=== PATIENT | male | born 1975 | race Caucasian/White ===

== ENCOUNTER 2016-10-04 18:34 | Observation (INO) | payer BC ==
--- NOTE | ~2016-10-04 | HP ---
History And Physical [place] [id number] [place]. [address] NAME: GARRY ROJAS : 75 STATUS : ADM Kalen PAT#: [id number] AGE: 40 ADM/REG DATE : 10/04/16 MR#: [id number] REPORT SERV DATE: 10/05/16 DICTATED BY: JODIE MADERA DATE: 10/05/16 REPORT STATUS : Draft TRANSCRIBED BY: MODL DATE: 10/05/16 DATE OF ADMISSION: 10/04/2016 CHIEF COMPLAINT: Chest pressure. HISTORY OF PRESENT ILLNESS: A pleasant, 40-year-old, white gentleman with no known history of CAD, who recently underwent lumbar fusion six weeks ago with Dr. Ward. He states that yesterday, 10/04/2016, after pentecostalism he felt midsternal chest pressure and shortness of breath. He experienced these symptoms again while walking outside to the [facility]. He describes the chest discomfort as a pressure, it did not radiate elsewhere. He reports associated shortness of breath and belching. Denies nausea, diaphoresis, or dizziness. At its most intense, he rated the chest discomfort as a 6/10. At time of interview in the [facility], he is pain free. The episode lasted approximately an hour in duration. He did try Tums with no improvement in his symptoms. The patient denies any personal history of myocardial infarction, stroke, DVT, or pulmonary embolus. The patient denies any recent fever or chills, no palpitations, no syncopal episodes. Denies PND or orthopnea. PAST MEDICAL HISTORY: 1. GERD. 2. Denies hypertension, dyslipidemia or diabetes. 3. Status post lumbar fusion 08/[address] Ward secondary to spondylolisthesis with instability. 4. Anxiety. 5. Positive family history for early CAD. 6. Former tobacco abuse. PAST SURGICAL HISTORY: 1. Ablation by Dr. Quiles at [facility] in 2006 for unknown rhythm. 2. Lumbar fusion. 3. Right shoulder surgery. 4. Cholecystectomy. 5. Umbilical hernia with subsequent incisional hernia repair. SOCIAL HISTORY: He is with two children. Previously, employed by [employer]. Currently, recovering from back surgery, recently more mobile on using a cane, with physical therapy to begin next week. Quit smoking greater than five years ago. Denies alcohol or illicits. FAMILY HISTORY: Father with heart attack at 52, in his 60s with a history of COPD. Mother with bypass at 72, remains alive at 75. REVIEW OF SYSTEMS: A 14-point review of systems performed, significant for HPI. No other contributory diagnoses identified. History And Physical [place] [address] [place]. [address] NAME: GARRY ROJAS : 75 STATUS : ADM Kalen PAT#: [id number] AGE: 40 ADM/REG DATE : 10/04/16 MR#: [id number] REPORT SERV DATE: 10/05/16 DICTATED BY: JODIE MADERA DATE: 10/05/16 REPORT STATUS : Draft TRANSCRIBED BY: JUVENAL DATE: 10/05/16 ALLERGIES: HE HAS ALLERGY TO PENICILLIN, HIVES; HISTAMINES, HEART RACING; TYLENOL, HIVES, NAUSEA, AND LETHARGY; PREDNISONE, HEART RACES, FLUSHING; ANCEF, HIVES; DILAUDID, AGITATION, ANGER. HOME MEDICINES: Tums p.r.n., Advil p.r.n., Protonix 40 mg daily. PHYSICAL EXAMINATION: VITAL SIGNS: Blood pressure 117/73, pulse 65, respirations 17, temperature 98.1, O2 saturation 98% on room air. Height 5 feet 11 inches, weight 197 pounds. BMI 27. GENERAL: Cooperative, in no apparent distress. HEENT: Pupils 2 mm, sclera nonicteric. Nares patent. Moist mucous membranes. No xanthelasma. NECK: Trachea midline, no thyromegaly. No JVD. No bruits. LYMPH: No cervical lymphadenopathy. No supraclavicular lymphadenopathy. RESPIRATORY: Unlabored respirations. Breath sounds clear bilaterally to posterior auscultation. No wheezes or rhonchi. CARDIOVASCULAR: Regular rate. No murmur, rub or gallop appreciated. Extremities without edema. Pulses 2+ bilaterally. ABDOMEN: Soft, nontender, nondistended, normal bowel sounds auscultated throughout. No organomegaly. SKIN: Warm, dry extremities. No pallor, or cyanosis. PSYCHIATRIC: Appropriate affect. Alert, oriented x3. LABORATORY DATA: Troponin less than 0.02 x3, potassium 3.5, BUN 16, creatinine 1.44, glucose 96, magnesium 2.0, BNP less than 2. WBC 12.7, hemoglobin 15.4, hematocrit 44.4, platelet count 197,000. D-dimer 0.57. EKG, sinus rhythm. MPI 05/2015: Jeancarlos stage IV, 10 minutes, 13 METs, mild chest pain, no ischemia. CTA of chest: No PE. Normal CTA of chest. ASSESSMENT AND PLAN: 1. Substernal chest pain. The patient has been observed in the [facility] overnight to rule out myocardial infarction with serial enzymes and serial EKGs and held n.p.o. We will proceed with vasodilator stress test today given recent back surgery and activity limitations. The patient will be discharged home if low risk, no ischemia. If anything suggestive of ischemia, Cardiology referral will be initiated. Otherwise, the patient will be asked to follow up with PCP in one to two weeks with all studies being sent to that office. 2. Gastroesophageal reflux disease. Continue PPI. 3. Recent back surgery. Activity and physical therapy encouraged as ordered and allowed to followup with Dr. Ward. KIKE/JUVENAL Jodie History And Physical [address] [address] NAME: GARRY ROJAS : 75 STATUS : ADM Kalen PAT#: [id number] AGE: 40 ADM/REG DATE : 10/04/16 MR#: [id number] REPORT SERV DATE: 10/05/16 DICTATED BY: JODIE MADERA DATE: 10/05/16 REPORT STATUS : Draft TRANSCRIBED BY: MODL DATE: 10/05/16 MIRTA Madera, [employer] / [id number] CC: Jodie Madera, MIRTA, [employer] HAJA COLEMAN
[2016-10-04 17:43] LABS: BASOPHILS 0.2 %; BASOPHILS ABSOLUTE 0.02 10/3/uL (0.0-0.16); EOSINOPHILS 0.2 %; EOSINOPHILS ABSOLUTE 0.02 10/3/uL (0.0-0.53); HEMOGLOBIN 15.4 g/dL (13.6-17.8); IMMATURE GRANULOCYTES 0.2 %; IMMATURE GRANULOCYTES ABSOLUTE 0.03 10/3/uL (0.0-0.11); LYMPHOCYTES ABSOLUTE 1.66 10/3/uL (0.67-4.30); MEAN CORPUS HGB CONC 34.7 g/dL (32.0-36.0); MEAN CORPUSCULAR HEMOGLOB 28.7 pg (26.0-34.0); MEAN CORPUSCULAR VOLUME 82.8 fL (80-100); MEAN PLATELET VOLUME 11.2 fL (9.2-13.0); MONOCYTES 4.6 %; MONOCYTES ABSOLUTE 0.58 10/3/uL (0.21-1.20); NEUTROPHILS 81.8 %; NEUTROPHILS ABSOLUTE 10.42 10/3/uL (2.02-8.40); RBC DISTRIBUTION WIDTH 12.9 % (12.0-16.0); RED CELL COUNT 5.36 10/6/uL (4.7-6.1)
[2016-10-04 17:50] LABS: ER CBC TAT 0 Hrs 12 Mins; HEMATOCRIT 44.4 % (40.0-51.0); MANUAL DIFF NO %; PLATELET COUNT 197 10/3/uL (150-400); WHITE BLOOD CELLS 12.7 10/3/uL (4.5-10.5)
[2016-10-04 18:00] LABS: BUN (BLOOD UREA NITROGEN) 16 MG/DL (6-23); CALCIUM, SERUM 9.4 MG/DL (8.5-10.4); CHEST PAIN PROFILE TAT 0 Hrs 22 Mins; CHLORIDE, SERUM 105 MMOL/L (96-112); CO2 (CARBON DIOXIDE) 24 MMOL/L (24-34); CREATININE 1.44 MG/DL (0.70-1.30); GFR AFRICAN AMERICAN 70 ML/MIN (>=60); GFR NON AFRICAN AMERICAN 60 ML/MIN (>=60); GLUCOSE, SERUM 96 MG/DL (60-99); POTASSIUM, SERUM 3.5 MMOL/L (3.5-5.3); SODIUM, SERUM 143 MMOL/L (135-148); TROPONIN I <0.02 NG/ML (<0.05)
[2016-10-04 18:08] LABS: PARTIAL THROMBO TIME 25.2 SEC (22.5-37.2); PROTIME (NOT ORD) 13.1 SEC (12.0-14.5)
[2016-10-04 18:11] LABS: D-DIMER QUANTITATIVE 0.57 ug/mLFEU (< 0.50)
[2016-10-04 18:14] LABS: BAND NEUTROPHILS 4 %; ER DIFF TAT 0 Hrs 36 Mins; LYMPHOCYTES 12 %; LYMPHOCYTES ABSOLUTE (CALC) 1.52 10/3/uL (0.67-4.30); MONOCYTES 9 %; MONOCYTES ABSOLUTE (CALC) 1.14 10/3/uL (0.21-1.20); NEUTROPHILS ABSOLUTE (CALC) 10.03 10/3/uL (2.02-8.40); PLATELET ESTIMATE ADQ (ADEQUATE); SEGMENTED NEUTROPHIL (0) 75 %; TOTAL NUCLEATED CELLS 100
[~2016-10-04 18:34] MED LIST: FLEX PO; OXYIR5 MG PO; PREV30 PO; PROTONIX PO; TESS PO; ULTRAM50 PO; V2 PO; ZOFRAN4 PO; [UNRECOGNIZED DRUG - OTHER]
[2016-10-04] MEDS ORDERED: PROTONIX PO (20:00)
[2016-10-04] MEDS ORDERED: ADVIL PO (20:01)
[2016-10-04] MEDS ORDERED: TUMSROLL PO (20:01)
== END 2016-10-05 17:48 | disposition home or self-care (01) ==
LOC: ER 18:34 → CDU1 21:26 → CDU2 22:12
PROVIDERS: Emergency Medicine
DX: R07.2 Precordial pain (principal); K21.9 Gastro-esophageal reflux disease without esophagitis; F41.9 Anxiety disorder, unspecified; Z87.891 Personal history of nicotine dependence; Z90.49 Acquired absence of other specified parts of digestive tract; Z98.890 Other specified postprocedural states; Z88.0 Allergy status to penicillin; Z88.8 Allergy status to other drugs, medicaments and biological substances; Z79.899 Other long term (current) drug therapy
CPT/HCPCS: 71010; 71275; 78452; 80048; 83735; 83880; 84484; 85025; 85379; 85610; 85730; 93005; 93017; 96374; 96375; 99285; A9270-GY; A9502; C8923; G0378; J0153; J2405; Q9957; Q9967

== ENCOUNTER 2016-10-07 18:54 | Emergency (ER) | payer BC ==
[~2016-10-07 18:54] MED LIST changes: +ADVIL PO; +TUMSROLL PO
[2016-10-07 19:07] LABS: BASOPHILS 0.5 %; BASOPHILS ABSOLUTE 0.03 10/3/uL (0.0-0.16); EOSINOPHILS 1.9 %; EOSINOPHILS ABSOLUTE 0.12 10/3/uL (0.0-0.53); ER CBC TAT 0 Hrs 05 Mins; HEMATOCRIT 43.6 % (40.0-51.0); HEMOGLOBIN 14.6 g/dL (13.6-17.8); IMMATURE GRANULOCYTES 0.3 %; IMMATURE GRANULOCYTES ABSOLUTE 0.02 10/3/uL (0.0-0.11); LYMPHOCYTES 33.8 %; LYMPHOCYTES ABSOLUTE 2.19 10/3/uL (0.67-4.30); MANUAL DIFF NO %; MEAN CORPUS HGB CONC 33.5 g/dL (32.0-36.0); MEAN CORPUSCULAR HEMOGLOB 28.7 pg (26.0-34.0); MEAN CORPUSCULAR VOLUME 85.7 fL (80-100); MEAN PLATELET VOLUME 11.4 fL (9.2-13.0); MONOCYTES 4.6 %; NEUTROPHILS 58.9 %; NEUTROPHILS ABSOLUTE 3.81 10/3/uL (2.02-8.40); PLATELET COUNT 175 10/3/uL (150-400); RBC DISTRIBUTION WIDTH 12.8 % (12.0-16.0); RED CELL COUNT 5.09 10/6/uL (4.7-6.1); WHITE BLOOD CELLS 6.5 10/3/uL (4.5-10.5)
[2016-10-07 19:14] LABS: PARTIAL THROMBO TIME 25.5 SEC (22.5-37.2); PROTIME (NOT ORD) 13.2 SEC (12.0-14.5)
[2016-10-07 19:24] LABS: BUN (BLOOD UREA NITROGEN) 21 MG/DL (6-23); CHEST PAIN PROFILE TAT 0 Hrs 22 Mins; CHLORIDE, SERUM 108 MMOL/L (96-112); CO2 (CARBON DIOXIDE) 24 MMOL/L (24-34); GFR AFRICAN AMERICAN 67 ML/MIN (>=60); GFR NON AFRICAN AMERICAN 57 ML/MIN (>=60); GLUCOSE, SERUM 99 MG/DL (60-99); POTASSIUM, SERUM 3.4 MMOL/L (3.5-5.3); SODIUM, SERUM 142 MMOL/L (135-148); TROPONIN I <0.02 NG/ML (<0.05)
== END 2016-10-08 02:44 | disposition home or self-care (01) ==
LOC: ER 18:54
PROVIDERS: Emergency Medicine
DX: R07.9 Chest pain, unspecified (principal); K21.9 Gastro-esophageal reflux disease without esophagitis; F41.9 Anxiety disorder, unspecified; Z88.5 Allergy status to narcotic agent; Z88.0 Allergy status to penicillin; Z88.6 Allergy status to analgesic agent; Z88.1 Allergy status to other antibiotic agents; Z88.8 Allergy status to other drugs, medicaments and biological substances; Z79.899 Other long term (current) drug therapy
CPT/HCPCS: 71020; 80048; 83735; 84484; 85025; 85610; 85730; 93005; 99285; A9270-GY

== ENCOUNTER 2016-10-10 11:04 | Emergency (ER) | payer BC ==
[2016-10-10 12:16] LABS: BASOPHILS 0.3 %; BASOPHILS ABSOLUTE 0.02 10/3/uL (0.0-0.16); EOSINOPHILS 1.2 %; EOSINOPHILS ABSOLUTE 0.07 10/3/uL (0.0-0.53); ER CBC TAT 0 Hrs 03 Mins; HEMATOCRIT 42.9 % (40.0-51.0); HEMOGLOBIN 14.7 g/dL (13.6-17.8); IMMATURE GRANULOCYTES 0.5 %; IMMATURE GRANULOCYTES ABSOLUTE 0.03 10/3/uL (0.0-0.11); LYMPHOCYTES 23.8 %; LYMPHOCYTES ABSOLUTE 1.43 10/3/uL (0.67-4.30); MANUAL DIFF NO %; MEAN CORPUS HGB CONC 34.3 g/dL (32.0-36.0); MEAN CORPUSCULAR HEMOGLOB 28.3 pg (26.0-34.0); MEAN CORPUSCULAR VOLUME 82.5 fL (80-100); MEAN PLATELET VOLUME 11.4 fL (9.2-13.0); MONOCYTES 6.8 %; MONOCYTES ABSOLUTE 0.41 10/3/uL (0.21-1.20); NEUTROPHILS 67.4 %; NEUTROPHILS ABSOLUTE 4.05 10/3/uL (2.02-8.40); PLATELET COUNT 169 10/3/uL (150-400); RBC DISTRIBUTION WIDTH 12.8 % (12.0-16.0)
[2016-10-10 12:37] LABS: A/G RATIO 1.1 (0.7-1.9); ALBUMIN 3.9 G/DL (3.5-5.0); ALKALINE PHOSPHATASE 91 U/L (45-117); BUN (BLOOD UREA NITROGEN) 12 MG/DL (6-23); CHLORIDE, SERUM 108 MMOL/L (96-112); CO2 (CARBON DIOXIDE) 26 MMOL/L (24-34); GFR AFRICAN AMERICAN 79 ML/MIN (>=60); GFR NON AFRICAN AMERICAN 68 ML/MIN (>=60); GLOBULIN 3.4 G/DL (2.5-4.1); GLUCOSE, SERUM 100 MG/DL (60-99); POTASSIUM, SERUM 3.5 MMOL/L (3.5-5.3); SGOT(AST) 14 U/L (5-40); SGPT(ALT) 22 U/L (5-65); SODIUM, SERUM 145 MMOL/L (135-148); TOTAL BILIRUBIN 0.7 MG/DL (0-1.2); TOTAL PROTEIN 7.3 G/DL (6.0-8.5); TROPONIN I <0.02 NG/ML (<0.05)
== END 2016-10-10 13:45 | disposition home or self-care (01) ==
LOC: ER 11:04
PROVIDERS: Emergency Medicine
DX: R07.89 Other chest pain (principal); K21.9 Gastro-esophageal reflux disease without esophagitis; Z88.0 Allergy status to penicillin; Z88.8 Allergy status to other drugs, medicaments and biological substances; Z79.899 Other long term (current) drug therapy
CPT/HCPCS: 71010; 80053; 83690; 84484; 85025; 93005; 99285; A9270-GY